=== PATIENT | female | born 1975 | race American Indian/Alaskan Native ===

== ENCOUNTER 2017-12-28 13:09 | Emergency (ER) | payer SELFPAY ==
[2017-12-28 13:14] VITALS: BP 165/92
[2017-12-28] MEDS ORDERED: ZOFRAN IV ONE (13:43)
[2017-12-28] MEDS ORDERED: ATIVAN IV ONE (13:43)
--- NOTE | 2017-12-28 15:33 | Emergency Department Report ---
ED General Adult HPI - General Chief complaint: Dyspnea/Respdistress Stated complaint: BACK OF THROAT LUMP FEELING Time Seen by Provider: 12/28/17 13:42 Source: patient Mode of arrival: Ambulatory Limitations: No Limitations - History of Present Illness Initial comments: 42-year-old female states that she ate a chicken sandwich at [employer] and feels like it got hung up in her esophagus. At the time of arrival she is somewhat a filling the nurse that she felt like something was closing off inside versus difficulty with swallowing. As far as I can tell she is not significantly anxious. She had no trouble with her breathing. She had no paresthesias. She was not hyperventilating. It appears that she is able to swallow on arrival but is having dysphagia. She has an emesis bag which has some liquid material in the bottom. However, she is not nauseated nor actively vomiting. She has never had anything like this before. -: Sudden (postprandially) Radiation: other (no pain) Consistency: intermittent Improves with: none Worsens with: none Associated Symptoms: denies other symptoms - Related Data Previous Rx's Medication Instructions Recorded Last Taken Type HYDROcodone/APAP 5-325 [[place] 1 each PO Q6HR PRN #15 tablet 02/21/14 Unknown Rx 5/325] HYDROcodone/APAP 5-325 [[place] 1 each PO Q6HR PRN #10 tablet 03/11/14 Unknown Rx 5-325 mg TAB] Ibuprofen [Motrin 800 MG tab] 800 mg PO Q8H PRN #20 tablet 03/11/14 Unknown Rx Penicillin Vk [Veetids TAB] 500 mg PO QID #40 tablet 03/11/14 Unknown Rx Allergies Allergy/AdvReac Type Severity Reaction Status Date / Time No Known Allergies Allergy Verified 02/21/14 06:37 ED Review of Systems ROS: Stated complaint: BACK OF THROAT LUMP FEELING Other details as noted in HPI Constitutional: denies: chills, fever Eyes: denies: eye pain, eye discharge, vision change ENT: denies: ear pain, throat pain Respiratory: denies: cough, shortness of breath, wheezing Cardiovascular: denies: chest pain, palpitations Endocrine: no symptoms reported Gastrointestinal: as per HPI. denies: abdominal pain, nausea, diarrhea Genitourinary: denies: urgency, dysuria, discharge Musculoskeletal: denies: back pain, joint swelling, arthralgia Skin: denies: rash, lesions Neurological: denies: headache, weakness, paresthesias Psychiatric: denies: anxiety, depression Hematological/Lymphatic: denies: easy bleeding, easy bruising ED Past Medical Hx - Past Medical History Previous Medical History?: Yes Additional medical history: mvp - Surgical History Past Surgical History?: Yes Additional Surgical History: tubal ligation - Social History Smoking Status: Never Smoker Substance Use Type: None - Medications Home Medications: Home Medications Medication Instructions Recorded Confirmed Last Taken Type HYDROcodone/APAP 5-325 [[place] 1 each PO Q6HR PRN #15 tablet 02/21/14 Unknown Rx 5/325] HYDROcodone/APAP 5-325 [[place] 1 each PO Q6HR PRN #10 tablet 03/11/14 Unknown Rx 5-325 mg TAB] Ibuprofen [Motrin 800 MG tab] 800 mg PO Q8H PRN #20 tablet 03/11/14 Unknown Rx Penicillin Vk [Veetids TAB] 500 mg PO QID #40 tablet 03/11/14 Unknown Rx ED Physical Exam - General Limitations: No Limitations General appearance: alert, in no apparent distress - Head Head exam: Present: atraumatic, normocephalic - Eye Eye exam: Present: normal appearance. Absent: scleral icterus - ENT ENT exam: Present: normal orophraynx, mucous membranes moist - Neck Neck exam: Present: normal inspection, other (no stridor good air exchange). Absent: tenderness, meningismus - Respiratory Respiratory exam: Present: normal lung sounds bilaterally. Absent: respiratory distress - Cardiovascular Cardiovascular Exam: Present: regular rate, normal rhythm. Absent: systolic murmur, diastolic murmur, rubs, gallop - GI/Abdominal GI/Abdominal exam: Present: soft, normal bowel sounds. Absent: distended, tenderness, guarding, rebound, rigid - Extremities Exam Extremities exam: Present: normal inspection - Back Exam Back exam: Present: normal inspection - Neurological Exam Neurological exam: Present: alert, oriented X3, CN II-XII intact. Absent: motor sensory deficit - Psychiatric Psychiatric exam: Present: normal affect, normal mood - Skin Skin exam: Present: warm, dry, intact, normal color. Absent: rash ED Course Vital Signs 12/28/17 13:10 Temperature 99.1 F Pulse Rate 97 H Respiratory 18 Rate Blood Pressure 165/92 O2 Sat by Pulse 98 Oximetry - Reevaluation(s) Reevaluation #1: The patient was given Ativan and Zofran. She rested for some time. She was able to subsequently swallow water without difficulty. I reviewed her history again with her. It seems clear that she was having difficulty with swallowing. There is no signs of any anaphylactoid reaction. I think it is possible the patient has an esophageal problem and endoscopy may be indicated. She will be referred to GI. 12/28/17 15:31 Critical care attestation.: If time is entered above; I have spent that time in minutes in the direct care of this critically ill patient, excluding procedure time. ED Disposition Clinical Impression: Dysphagia Qualifiers: Dysphagia type: unspecified Qualified Code(s): R13.10 - Dysphagia, unspecified Disposition: DC-01 TO HOME OR SELFCARE Is pt being admited?: No Does the pt Need Aspirin: No Condition: Stable Instructions: Esophageal Spasm (ED) Additional Instructions: It is uncertain what caused her problem today. Endoscopy may be needed for final diagnosis. This would be done as an outpatient with a GI specialist. C referral. Patient you chew your food well and start with a soft diet. Referrals: PRIMARY CARE, [Primary Care Provider] - 3-5 Days [facility] [Provider Group] - 3-5 Days Time of Disposition: 15:36
== END 2017-12-28 15:40 | disposition home or self-care (01) ==
LOC: ED 13:09
DX: R13.10 Dysphagia, unspecified (principal); Z98.51 Tubal ligation status; I34.1 Nonrheumatic mitral (valve) prolapse
CPT/HCPCS: 96374; 96375; 99282; J2060; J2405

== ENCOUNTER 2021-04-17 10:37 | Outpatient (CLI) | payer OTHER ==
--- NOTE | 2021-04-17 12:16 | XRay Report ---
RIGHT FOOT 2 VIEWS INDICATION: RIGHT FOOT PAIN. COMPARISON: None. IMPRESSION: No acute osseous or soft tissue abnormality. No significant DJD. Signer Name: Lucas Monet Jr, MD Signed: 04/17/2021 12:11 PM Workstation Name: [id number]
== END 2021-04-17 10:38 | disposition home or self-care (01) ==
LOC: XRAY 10:37
PROVIDERS: ATTEND Internal Medicine
DX: M79.671 Pain in right foot (principal)